=== PATIENT | female | born 1965 | race Caucasian/White ===

== ENCOUNTER → 2017-11-02 | Outpatient (CLI) | payer BC | LOC: RAD 13:23 | PROVIDERS: ATTEND Family Medicine | DX: Z12.31 Encounter for screening mammogram for malignant neoplasm of breast (principal) | CPT/HCPCS: 77067 ==

== ENCOUNTER → 2018-11-08 | Outpatient (CLI) | payer BC ==
--- NOTE | 2018-11-08 19:45 | Diagnostic Imaging Report ---
INDICATION: Routine screening. COMPARISON is made with prior mammograms from 11/02/2017 and 12/25/2015. 2-D and 3-D bilateral screening mammography was performed with CAD. FINDINGS: Both breasts are heterogeneously dense, limiting the sensitivity of mammography. The parenchymal pattern appears to be stable. No dominant mass or malignant appearing microcalcifications are seen. The axillae are unremarkable. IMPRESSION: BI-RADS category 1. No mammographic features suspicious for malignancy are identified. Dictated by: Dictated on workstation # [id number]
== END ==
LOC: RAD 15:03
PROVIDERS: ATTEND Family Medicine
DX: Z12.31 Encounter for screening mammogram for malignant neoplasm of breast (principal)
CPT/HCPCS: 77067

== ENCOUNTER → 2019-12-13 | Outpatient (CLI) | payer BC ==
--- NOTE | 2019-12-13 16:12 | Diagnostic Imaging Report ---
INDICATION: Routine screening. COMPARISON: 11/08/2018 and 11/02/2017. TECHNIQUE: 2D and 3D bilateral screening mammography was performed with CAD. FINDINGS: Both breasts are heterogeneously dense, limiting the sensitivity of mammography. There are some circumscribed nodules in the left breast which appear stable and consistent with benign etiologies. No spiculated mass or malignant appearing microcalcifications are seen. The axillae are unremarkable. IMPRESSION: No mammographic features suspicious for malignancy are identified. ACR BI-RADS Category 2: Benign findings. Result letter will be mailed to the patient. Note: At least 10% of breast cancer is not imaged by mammography. Dictated by: Dictated on workstation # [id number]
== END ==
LOC: RAD 15:35
PROVIDERS: ATTEND Family Medicine
DX: Z12.31 Encounter for screening mammogram for malignant neoplasm of breast (principal)
CPT/HCPCS: 77067

== ENCOUNTER → 2021-04-29 | Outpatient (CLI) | payer BC ==
--- NOTE | 2021-04-29 20:22 | Diagnostic Imaging Report ---
INDICATION: Routine screening. COMPARISON is made with prior mammograms from 12/13/2019 and 11/08/2018. 2-D and 3-D bilateral screening mammography was performed with CAD. Both breasts are heterogeneously dense, limiting the sensitivity of mammography. Circumscribed nodules in both breasts appears stable. No new mass or malignant appearing microcalcifications are seen. Axillae are unremarkable. IMPRESSION: BI-RADS Category 2 No mammographic features suspicious for malignancy are identified. ACR BI-RADS Category 2: Benign findings. Result letter will be mailed to the patient. Note: At least 10% of breast cancer is not imaged by mammography. Dictated by: Dictated on workstation # [id number]
== END ==
LOC: RAD 14:45
PROVIDERS: ATTEND Family Medicine
DX: Z12.31 Encounter for screening mammogram for malignant neoplasm of breast (principal)
CPT/HCPCS: 77063; 77067

== ENCOUNTER 2023-01-29 05:38 | Outpatient (CLI) | payer BC ==
[~2023-01-29] VITALS: Ht 157.5 cm; Wt 81.8 kg
[2023-02-01] MEDS ORDERED: CLN.1T PO (13:24)
[2023-02-01] MEDS ORDERED: ATOR20TA66 PO (13:24)
[2023-02-01] MEDS ORDERED: LISI10TA25 PO (13:24)
== END 2023-02-01 13:32 | disposition home or self-care (01) ==
LOC: PREOP 05:38
PROVIDERS: ATTEND Specialist
DX: Z01.818 Encounter for other preprocedural examination (principal)

== ENCOUNTER 2023-02-05 09:50 | Day surgery (SDC) | payer BC ==
[~2023-02-05] VITALS: Ht 157.5 cm; Wt 81.8 kg
[~2023-02-05 09:50] MED LIST: ATOR20TA66 PO; CLN.1T PO; LISI10TA25 PO
[2023-02-05 10:00] VITALS: BP 116/84
[2023-02-05] MEDS ORDERED: TIMOLOL 0.5% (CATARACTS) 0.3 ML BTL OU ONE (10:15)
[2023-02-05] MEDS ORDERED: PILOCARPINE 4% OPHTH SOLN (ISOPTO CARPINE) 15 ML BTL OP ONE (10:15)
[2023-02-05] MEDS ORDERED: TETRACAINE 0.5% OPHTH SOLN 4 ML BTL (SINGLE DOSE ONLY) OU ONE (10:15)
--- NOTE | 2023-02-05 11:01 | Ophthalmologist Pre-Op Note ---
Pre-Operative Progress Note H&P Reviewed The H&P was reviewed, patient examined and no changes noted. Date H&P Reviewed: Feb 05, 2023 Time H&P Reviewed: 10:44 Pre-Op Dx Narrow angle glaucoma, Right Eye LAURENCE TERRY MD Feb 05, 2023 11:01
--- NOTE | 2023-02-05 11:13 | Ophthalmology Operative Report ---
YAG Iridotomy PREOPERATIVE DIAGNOSIS: Narrow angle glaucoma, Right Eye POSTOPERATIVE DIAGNOSIS: Narrow angle glaucoma, Right Eye PROCEDURE: YAG Iridotomy right eye SURGEON: Jorge L Terry ANESTHESIA: Topical anesthesia COMPLICATIONS: None ESTIMATED BLOOD LOSS: Minimal DESCRIPTION OF PROCEDURE: After proper informed consent was obtained, that patients right eye received one drop of tetracaine and one drop of pilocarpine 4%. The patient received 1 drop of timolol 0.5% five minutes after the pilocarpine. The iridotomy lens was placed on the patients eye. After this the patient was moved to the YAG laser and using a power of [7.0 ] millijoules [6 ] bursts were used to fashion a patent iridotomy. The patient tolerated the procedure well without complications and the patients pressure was [23] shortly after the laser JORGE L TERRY MD Feb 05, 2023 11:13
== END 2023-02-05 11:07 | disposition home or self-care (01) ==
LOC: SDC 09:50
PROVIDERS: ATTEND Specialist
DX: H40.20X0 Unspecified primary angle-closure glaucoma, stage unspecified (principal)

== ENCOUNTER 2023-02-16 05:30 | Outpatient (CLI) | payer BC | END 2023-02-16 16:20 | disposition home or self-care (01) | LOC: PREOP 05:30 | PROVIDERS: ATTEND Specialist | DX: Z01.818 Encounter for other preprocedural examination (principal) ==

== ENCOUNTER 2023-02-19 10:05 | Day surgery (SDC) | payer BC ==
[~2023-02-19] VITALS: Wt 81.8 kg
[2023-02-19 10:00] VITALS: BP 130/70
[2023-02-19] MEDS ORDERED: TIMOLOL 0.5% (CATARACTS) 0.3 ML BTL OU ONE (10:15)
[2023-02-19] MEDS ORDERED: PILOCARPINE 4% OPHTH SOLN (ISOPTO CARPINE) 15 ML BTL OP ONE (10:15)
[2023-02-19] MEDS ORDERED: TETRACAINE 0.5% OPHTH SOLN 4 ML BTL (SINGLE DOSE ONLY) OU ONE (10:15)
--- NOTE | 2023-02-19 11:03 | Ophthalmology Operative Report ---
YAG Iridotomy PREOPERATIVE DIAGNOSIS: Narrow angle glaucoma, Left Eye POSTOPERATIVE DIAGNOSIS: Narrow angle glaucoma, Left Eye PROCEDURE: YAG Iridotomy left eye SURGEON: Jorge L Terry ANESTHESIA: Topical anesthesia COMPLICATIONS: None ESTIMATED BLOOD LOSS: Minimal DESCRIPTION OF PROCEDURE: After proper informed consent was obtained, that patients left eye received one drop of tetracaine and one drop of pilocarpine 4%. The patient received 1 drop of timolol 0.5% five minutes after the pilocarpine. The iridotomy lens was placed on the patients eye. The patient was moved to the YAG laser and using a power of [7.0 ] millijoules [7 ] bursts were used to fashion a patent iridotomy. The patient tolerated the procedure well without complications and the patients pressure was [ 19] shortly after the laser JORGE L TERRY MD February 19, 2023 11:03
--- NOTE | 2023-02-19 11:04 | Ophthalmologist Pre-Op Note ---
Pre-Operative Progress Note H&P Reviewed The H&P was reviewed, patient examined and no changes noted. Date H&P Reviewed: February 19, 2023 Time H&P Reviewed: 10:40 Pre-Op Dx PREOPERATIVE DIAGNOSIS: Narrow angle glaucoma, Left Eye POSTOPERATIVE DIAGNOSIS: Narrow angle glaucoma, Left Eye PROCEDURE: YAG Iridotomy left eye SURGEON: Jorge L Terry ANESTHESIA: Topical anesthesia COMPLICATIONS: None ESTIMATED BLOOD LOSS: Minimal DESCRIPTION OF PROCEDURE: After proper informed consent was obtained, that patients left eye received one drop of tetracaine and one drop of pilocarpine 4%. The patient received 1 drop of timolol 0.5% five minutes after the pilocarpine. The iridotomy lens was placed on the patients eye. The patient was then placed at the argon laser and using a power of [ ] milliwatts, duration of [ ], and spot size of [ ], [ ] burst were used to flatten the iris. After this the patient was moved to the YAG laser and using a power of [ ] millijoules [ ] bursts were used to fashion a patent iridotomy. The patient tolerated the procedure well without complications and the patients pressure was [ ] shortly after the laser JORGE L TERRY MD February 19, 2023 11:04
== END 2023-02-19 11:18 | disposition home or self-care (01) ==
LOC: SDC 10:05
PROVIDERS: ATTEND Specialist
DX: H40.20X0 Unspecified primary angle-closure glaucoma, stage unspecified (principal)